=== PATIENT | female | born 1955 | race Caucasian/White ===

== ENCOUNTER 2020-02-27 04:44 | Inpatient (IN) | payer MEDICARE ==
[2020-02-27] VITALS (8 sets, daily range): BP systolic 123–149; BP diastolic 59–96
[~2020-02-27] VITALS: Ht 157.5 cm; Wt 95.3 kg
[2020-02-27] MEDS ORDERED: KETOROLAC TROMETHAMINE 30 MG/ML VIAL ONE (05:39)
--- NOTE | 2020-02-27 05:50 | Emergency Department Note ---
History of Present Illnes History of Present Illness Chief Complaint: Extremity Trauma/Pain History of Present Illness This is a 64 year old female c/o left leg pain radiating to the buttock, hard to walk for 2 weeks, also c/o SOB seen by her PCP Dr Javed Arnett last week. She was prescribed oxygen for SOB and ordered a Doppler but she refused the Doppler. She could not walk and her pain got worse so she came in to ER. Historian: Patient Arrival Mode: Car Dimension Warehouse Supervisor Required: No Onset (how long ago): day(s) Radiation: Reports back, Reports extremity, Reports proximal Onset quality: gradual Duration (how long): week(s) Timing of current episode: constant Progression: worsening Relieving factors: immobilization Exacerbating factors: movement Associated symptoms: Reports loss of appetite, Reports shortness of breath Treatments prior to arrival: none Past Medical/Family History Physician Review I have reviewed the patient's past medical and family history. Any updates have been documented here. Past Medical History Recent Fever: No Clinical Suspicion of Infectio: No New/Unexplained Change in Ment: No Past Medical History: Hypertension, A-Fib, Hypothyroidism, Osteoarthritis Past Surgical History: Bariatric Surgery Other Surgery: neck and back surgeries Social History Smoking Cessation: Never Smoker Counseling Performed: No Alcohol Use: Occasional Any Illegal Drug Use: No Other Any Pre-Existing Lines (PICC,: No Review of Systems Review of Systems EENTM: Reports no symptoms Cardiovascular: Reports no symptoms Respiratory: Reports as per HPI, Reports dyspnea on exertion Gastrointestinal: Reports no symptoms Genitourinary: Reports no symptoms Musculoskeletal: Reports as per HPI Integumentary: Reports no symptoms Neurological: Reports no symptoms Psychological: Reports no symptoms Endocrine: Reports no symptoms Hematological/Lymphatic: Reports no symptoms Physical Exam Related Data Allergies: Coded Allergies: cephalexin (Verified Allergy, Unknown, 02/27/20) Triage Vital Signs Vital Signs Date Time Temp Pulse Resp B/P (MAP) Pulse Ox O2 Delivery O2 Flow Rate FiO2 02/27/20 05:04 97.8 76 18 174/96 98 Room Air Vital signs reviewed: Yes Physical Exam CONSTITUTIONAL Constitutional: Present well-developed, Present well-nourished HENT HENT: Present normocephalic, Present atraumatic, Present oropharynx clear/moist, Present nose normal HENT L/R: Present left ext ear normal, Present right ext ear normal EYES Eyes: Reports PERRL, Reports conjunctivae normal NECK Neck: Present ROM normal PULMONARY Pulmonary: Present effort normal, Present breath sounds normal CARDIOVASCULAR Cardiovascular: Present regular rhythm, Present heart sounds normal, Present capillary refill normal, Present normal rate GASTROINTESTINAL Abdominal: Present soft, Present nontender, Present bowel sounds normal GENITOURINARY Genitourinary: Present exam deferred SKIN Skin: Present warm, Present dry MUSCULOSKELETAL Musculoskeletal: Present ROM normal, Present other (no edema, postive straight leg raise left) NEUROLOGICAL Neurological: Present alert, Present oriented x 3, Present no gross motor or sensory deficits PSYCHOLOGICAL Psychological: Present mood/affect normal, Present judgement normal Results Laboratory Lab results reviewed: Yes Imaging Imaging results reviewed: Yes Procedures 12 Lead ECG Interpretation ECG Interpretation : ECG: ECG 1 Dimension Warehouse Supervisor: Interpreted by ED physician Date: Feb 27, 2020 Time: 05:57 Prior ECG tracings: reviewed Rhythm: atrial fibrillation Rate: bradycardia QRS axis: normal Clinical Impression: abnormal ECG Assessment & Plan Medical Decision Making MDM sciatica, PE, COPD, CHF, DVT Assessment & Plan Final Impression: (1) Dyspnea (2) Afib (3) Anemia (4) Sciatica Depart Disposition: ADMITTED Last Vital Signs Date Time Temp Pulse Resp B/P (MAP) Pulse Ox O2 Delivery O2 Flow Rate FiO2 02/27/20 05:04 97.8 76 18 174/96 98 Room Air Home Meds Reported Medications Apixaban (Eliquis) 5 Mg Tablet, DAILY 02/27/20 Pramipexole Di-Hcl (PRAMIPEXOLE DIHYDROCHLORIDE) 1 Mg Tablet, 1 MG PO BID 02/27/20 Levothyroxine Sodium (LEVOTHYROXINE SODIUM) 100 Mcg Vial, 150 MCG PO QAM, VIAL 02/27/20 Aspirin (ASPIRIN) 81 Mg Tab.chew, DAILY 02/27/20 Lisinopril (LISINOPRIL) 10 Mg Tablet, 20 MG PO DAILY, #30 TAB 02/27/20 Physician Attestation Provider Attestation Case discussed with Dr Miller and PERLA Majano MD Feb 27, 2020 05:50
[2020-02-27] MEDS ORDERED: KETOROLAC TROMETHAMINE 30 MG/ML VIAL IV ONE (06:00)
[2020-02-27] MEDS ORDERED: LEVOTHYROXINE100 MC1 PO (06:10)
[2020-02-27] MEDS ORDERED: PRAMIPEXOLE DIHY1 MG PO (06:10)
[2020-02-27] MEDS ORDERED: ELIQUIS5 MG (06:10)
[2020-02-27] MEDS ORDERED: ASPIRIN81 MG (06:10)
[2020-02-27] MEDS ORDERED: LISINOPRIL10 MG PO (06:10)
--- NOTE | 2020-02-27 06:29 | Diagnostic Imaging Report ---
History: Left lower extremity pain for 2 weeks. Comparison studies: None Technique: Axial images were obtained through the lumbar spine from T12-S1. Coronal and sagittal images reconstructed from the axial data. Dose modulation, iterative reconstruction, and/or weight based adjustment of the mA/kV was utilized to reduce the radiation dose to as low as reasonably achievable. Intravenous contrast: None Findings: The usual 5 non-rib bearing lumbar vertebral bodies are present. Alignment: Normal lordosis. Mild levocurvature of lower lumbar spine may be positional. No subluxation. Soft tissues: Mild atherosclerotic calcification in abdominal aorta and its branches. Paraspinal muscles: Fatty atrophy of posterior paraspinal muscles from level L3-S1. Sacroiliac joints: Minimal bilateral degenerative changes with subchondral sclerosis. Vertebrae: Expected postoperative changes from prior laminectomy from level L3-L5. No fractures, infection or neoplasm. Degenerative changes: L1-L2: No abnormalities. L2-L3: Mild bilateral facet arthrosis. L3-L4: Mild degenerative disc disease. Disc bulge asymmetric to left without canal stenosis. Postoperative changes from prior laminectomy. Moderate right and mild left facet arthrosis. Moderate right and mild left foraminal stenosis. L4-L5: Mild degenerative disc disease. Disc bulge without canal stenosis. Postoperative changes from prior laminectomy. Moderate bilateral facet arthrosis. Moderate bilateral foraminal stenosis. L5-S1: Moderate degenerative disc disease with decreased intervertebral disc space, endplate changes and anterior vertebral osteophyte. Disc bulge with superimposed 1.5 mm central disc protrusion effaces and indents anterior thecal sac without significant canal stenosis. Bilateral severe facet arthrosis. Mild bilateral foraminal stenosis. IMPRESSION: 1. No acute lumbar spine fracture or dislocation. Mild levocurvature of lumbar spine may be positional. 2. Expected postoperative changes from prior laminectomy from level L3-L5. 3. Multilevel lumbar spondylosis without significant canal stenosis. Multilevel foraminal stenosis, particularly moderate right and mild left at L3-L4, moderate bilateral at L4-L5 and mild bilateral at L5-S1. 4. Multilevel degenerative disc disease and facet arthrosis as detailed above. 5. Ligament, spinal cord and or vascular abnormalities cannot be excluded on the basis of this examination. Signed by: Dr. Areli Perez M.D. on 02/27/2020 6:25 AM
[2020-02-27] MEDS ORDERED: DIPHENHYDRAMINE HCL INJ 50 MG/ML VIAL IV PRN (06:30)
[2020-02-27] MEDS ORDERED: ONDANSETRON HCL INJ 2MG/ML 2ML 2 MG/ML VIAL IV PRN (06:30)
[2020-02-27] MEDS ORDERED: ASPIRIN 81 MG CHEW TAB PO ONE (06:30)
[2020-02-27] MEDS ORDERED: SODIUM CHLORIDE FLUSH 10 ML SYR INJ PRN (06:30)
[2020-02-27] MEDS ORDERED: ZOLPIDEM TARTRATE 5 MG TAB PO PRN (06:30)
[2020-02-27] MEDS ORDERED: ACETAMINOPHEN 325 MG TAB PO PRN (06:30)
--- NOTE | 2020-02-27 06:34 | Diagnostic Imaging Report ---
EXAMINATION: CXR 1 VEW - HOPD INDICATION: SOB COMPARISON: None FINDINGS: LUNGS: Normal lung volumes. Lungs are clear. No consolidations. PLEURA: No pleural effusion or pneumothorax. HEART AND MEDIASTINUM: The cardiomediastinal silhouette is unremarkable. BONES AND SOFT TISSUES: No acute osseous lesion. Soft tissues are unremarkable. Cervical fusion hardware. UPPER ABDOMEN: No free air under the diaphragm. IMPRESSION: No acute thoracic radiographic abnormality. Signed by: Javed Oliveros MD on 02/27/2020 6:30 AM
[2020-02-27] MEDS: FAMOTIDINE 20 MG TAB PO SCH ×2 (06:49→17:55)
[2020-02-27] MEDS: MORPHINE SULFATE INJ 4 MG/ML INJ 1ML IV PRN (06:49)
[2020-02-27] MEDS: ONDANSETRON HCL INJ 2MG/ML 2ML 2 MG/ML VIAL IV PRN ×2 (06:49→23:15)
[2020-02-27] MEDS ORDERED: ONDANSETRON HCL INJ 2MG/ML 2ML 2 MG/ML VIAL ONE (06:50)
[2020-02-27] MEDS ORDERED: FAMOTIDINE 20 MG/2 ML VIAL IV ONE (06:50)
[2020-02-27] MEDS ORDERED: MORPHINE SULFATE INJ 4 MG/ML INJ 1ML ONE (06:50)
--- NOTE | 2020-02-27 07:00 | NUR ---
Called [facility] to transport pt to room 107 ETA is 45 minutes
--- NOTE | 2020-02-27 07:44 | NUR ---
Report attempted, RN in room with other pt. try again in about 10 minutes
--- NOTE | 2020-02-27 07:59 | NUR ---
Report to PAULIE Eduardo
[2020-02-27 09:37] LABS: CREATINE KINASE MB 6.7 ng/mL (0-5.0)
[2020-02-27] MEDS ORDERED: HYDRALAZINE HCL 25 MG TAB PO PRN (09:45)
[2020-02-27] MEDS ORDERED: BISACODYL 10 MG SUPP PR PRN (09:45)
[2020-02-27] MEDS ORDERED: MAGNESIUM HYDROXIDE 30 ML UDC PO PRN (09:45)
[2020-02-27] MEDS ORDERED: LEVOTHYROXINE SODIUM 100 MCG/VIAL IV SCH ×2 (09:45→10:15)
[2020-02-27] MEDS ORDERED: KETOROLAC TROMETHAMINE 30 MG/ML VIAL IV PRN (09:45)
[2020-02-27 10:02] LABS: BASOPHILS # (AUTO) 0.1 (0.0-0.1); BASOPHILS % 1.2 % (0.0-1.0); EOSINOPHILS # (AUTO) 0.3 (0.0-0.4); EOSINOPHILS % 3.5 % (0.0-6.0); HEMATOCRIT 30.7 % (34.2-44.1); HEMOGLOBIN 8.7 g/dL (12.0-16.0); LYMPHOCYTES # (AUTO) 1.7 (1.0-3.2); LYMPHOCYTES % 22.9 % (18.0-39.1); MEAN CORPUSCULAR HEMOGLOBIN 21.3 pg (28-32); MEAN CORPUSCULAR HGB CONC 28.3 g/dL (31-35); MEAN CORPUSCULAR VOLUME 75.1 fL (81-99); MONOCYTES # (AUTO) 0.5 (0.2-0.8); MONOCYTES % 7.1 % (4.4-11.3); NEUTROPHILS # (AUTO) 4.7 (2.1-6.9); PLATELET COUNT 232 x10e3/uL (140-360); RED BLOOD COUNT 4.09 x10e6/uL (3.6-5.1); RED CELL DISTRIBUTION WIDTH 16.9 % (11.7-14.4)
[2020-02-27 10:19] LABS: ALANINE AMINOTRANSFERASE 8 IU/L (0-55); ALBUMIN/GLOBULIN RATIO 1.4 (0.8-2.0); ALKALINE PHOSPHATASE 58 IU/L (40-150); BLOOD UREA NITROGEN 17 mg/dL (7-26); BUN/CREATININE RATIO 18 (6-25); CALCIUM 8.7 mg/dL (8.4-10.2); CARBON DIOXIDE 28 mmol/L (22-29); CHLORIDE 102 mmol/L (98-107); CREATININE, SERUM 0.92 mg/dL (0.57-1.11); EST GLOMERULAR FILTRATION RATE > 60 ML/MIN (60-); GLUCOSE 96 mg/dL (74-118); SODIUM 140 mmol/L (136-145)
[2020-02-27] MEDS: HYDROCODONE/APAP 10MG-325MG TAB PO PRN ×2 (10:30→14:31)
[2020-02-27] MEDS: SENNOSIDES 8.6 MG TAB PO SCH ×2 (10:40→17:55)
[2020-02-27] MEDS: GABAPENTIN 100 MG CAP PO SCH ×4 (10:40→17:56)
[2020-02-27] MEDS: APIXABAN 5 MG TABLET PO SCH ×2 (10:40→17:55)
[2020-02-27] MEDS: LISINOPRIL 10 MG TAB PO SCH (10:41)
--- NOTE | 2020-02-27 11:44 | History and Physical ---
PRIMARY CARE PHYSICIAN: Luis Fernando Arnett MD CHIEF COMPLAINT: Left lower extremity radiculopathy associated with unable to walk for the past two weeks, worsening for the past few days. HISTORY OF PRESENT ILLNESS: This is a [id number] with degenerative disk disease with previous lumbar spine laminectomy years ago, came in with left lower extremity radiating pain and shooting pain from the lower back down to the leg area, increased for the past 2 weeks, and much worse recently. Pain was quite severe when she walked that causes shortness of breath. The patient had atrial fibrillation, rate controlled. She is on Eliquis. The venous Doppler of the lower extremities is negative for any blood clot. The patient is stable. The patient stated that her shortness of breath was due to her pain mostly. The patient was given tramadol by Dr. Arnett, but that did not help. She is having pain. She also has history of a nerve stimulator that was subsequently removed, but the lead is still in, therefore she is unable to obtain an MRI of the spine. PAST MEDICAL HISTORY: Degenerative disk disease of the lumbar spine and the neck. Obesity. Hypertension. Hypothyroidism. Atrial fibrillation on anticoagulant therapy. Osteoarthritis. PAST SURGICAL HISTORY: Including hiatal hernia repair. Weight loss surgery. Cholecystectomy, hysterectomy, appendectomy. Lower back lumbar spine laminectomy. Thyroidectomy. Lap banding. Cervical spine fusions. Nerve stimulator that was subsequently removed. SOCIAL HISTORY: The patient does not smoke or use alcohol. No regular drugs. ALLERGIES: KEFLEX. HOME MEDICATIONS: The patient is on Eliquis, aspirin, levothyroxine, lisinopril, and pramipexole. PHYSICAL EXAMINATION: VITAL SIGNS: Temperature is 98, blood pressure 149/96, pulse rate 58, respiration 18. Her height is 5 feet 2 inches, weight is 210 pounds, and BMI 38. GENERAL: The patient is not in acute distress. GENERAL: The patient is not in acute distress. HEENT: Normocephalic and atraumatic. She is anicteric. NECK: Supple. No JVD. Previous surgical scar. PULMONARY: Diminished breath sounds without any wheezing. CARDIOVASCULAR: Irregularly irregular rate control. ABDOMEN: Soft. Morbidly obese. EXTREMITIES: No cyanosis or edema. NEUROLOGIC: Radiculopathy of the left lower extremity. Otherwise, the patient has no other focal deficit. LABORATORY DATA: Was not done. IMAGIN. Lumbar spine. CT scan showed no acute lumbar spine fracture or dislocation. Mild level of curvature of the lumbar spine. Postoperative changes, laminectomy from level of L3-L5. Multi lumbar level spondylosis without canal stenosis. Multilevel foraminal stenosis particularly right and mild left at L3-L4, moderate bilateral L4-L5 and mild bilateral at L5-S1. Multilevel degenerative disk disease. 2. Chest x-ray is otherwise unremarkable. IMPRESSION: 1. Ambulatory dysfunction secondary to lumbosacral spinal pain acute on chronic pain worsening with radiating pain to the left lower extremity. This may be secondary to the nerve involvement. The patient had previous laminectomy as mentioned above. She had a laminectomy from the level of L3-L5. Degenerative disk disease. 2. Multiple chronic baseline problems. The patient is on Eliquis for atrial fibrillation. PLAN: Start the patient on pain control. Start the patient on Toradol and [place]. She had ordered for morphine for increase in pain level. She is also to resume her home medication. Stool management if needed. Consultation with Dr. Yong Hunt for the radiculopathy of the left lower extremity. Consultation with Dr. Yin for pain management. I will go ahead and order the blood work since I did not find any lab results, CMP, and CBC. We will add on a TSH as well. Start the patient on gabapentin 200 mg 3 times a day. MD AIDA Payne/FLAVIO /[id number]
--- NOTE | 2020-02-27 17:20 | Consultation ---
DATE OF CONSULTATION: Cardiology Consultation REASON FOR CONSULTATION: Leg pain and also atrial fibrillation. HISTORY OF PRESENT ILLNESS: Ms. May is a 64-year-old female with a complaint of left lower pain that radiates to her buttocks that has been ongoing for the last few weeks and worsening. She reports for approximately about 3 weeks, she has been suffering from this pain. They also started after an aunt bite and swelling in one portion on her legs and for this reason, she sought services from underlying doctors. She was prescribed antibiotic, however, after the course of antibiotic, the problem persisted. She reports that this pain is like mostly constant and worsens when she is standing on her legs. She does report a history of atrial fibrillation that she has known for approximately over last year and takes Eliquis for. She had a left heart catheterization that was done approximately one year ago that she reports she was told was normal. Currently, she denies any fever, chills, abdominal pain, dysuria, or palpitations. She does endorse some shortness of breath and chest pressure. REVIEW OF SYSTEMS: Negative except as mentioned above. PAST MEDICAL HISTORY: Atrial fibrillation. PAST SURGICAL HISTORY: None. SOCIAL HISTORY: She has one child and a boyfriend, endorses occasional taking alcohol. PHYSICAL EXAMINATION: VITAL SIGNS: Temperature 98.2, pulse 65, respiratory rate 16, blood pressure 156/80, oxygen saturation 97% on room air. GENERAL: Alert and oriented x3, resting comfortably in bed, does not appear to be in any acute distress at this moment. NECK: Supple. No JVD noted. CARDIOVASCULAR: Regular rate and rhythm. Normal S1, S2. No murmurs, no gallops. LUNGS: Clear to auscultation throughout, no wheezing, no rhonchi or crackles. ABDOMEN: Soft and nontender. LOWER EXTREMITIES: 2+ pedal pulses. Slight edema to the left lower extremity. CARDIOVASCULAR MEDICATIONS: 1. Lisinopril 20 mg p.o. daily. 2. Gabapentin 200 mg p.o. b.i.d. 3. Eliquis 5 mg p.o. b.i.d. 4. Hydralazine 25 mg p.o. q.4 hours. LABORATORY DATA: WBC 7.22, hemoglobin 8.7, hematocrit 30.7, platelets 232. Sodium 140, potassium 4.0, BUN 17, creatinine 0.92, GFR greater than 60, CK-MB 6.70, troponin 0.23, creatine kinase 329. TSH 57. Chest x-ray on admission with no acute thoracic radiographic abnormalities noted. CT of lumbar with no acute spine fracture or dislocation. Multilevel lumbar spondylosis with multilevel foraminal stenosis, multilevel degenerative disk disease. IMPRESSION: 1. Hypothyroidism. 2. Chest pain. 3. Left lower pain. 4. Hypertension. 5. Atrial fibrillation. RECOMMENDATIONS: Echocardiogram and left lower extremity Doppler have been ordered. In regard to leg pain, continue medical therapy management of the above. Given risk factor and complaints of chest pain, plan for stress test tomorrow. Further recommendations will follow. We will continue to follow this patient very closely. We thank you for this consultation and allowing us to participate in this patient's care. Dictated by Lisa Munguia NP MD KATE Ornelas/FLAVIO /[id number]
[2020-02-27] MEDS: PRAMIPEXOLE DIHYDROCHLORIDE 1 MG TAB PO SCH (17:55)
--- NOTE | 2020-02-27 20:00 | NUR ---
RECEIVED PT EATING IN THE ROOM ,.DENIES PAIN AT THIS TIME .PT IS NPO AFTER MID NIGHT FOR STRESS TEST ,CALL LIGHT WITH IN REACH .CONTINUE TO MONITOR
[2020-02-28] VITALS (7 sets, daily range): BP systolic 125–146; BP diastolic 60–85
[2020-02-28 00:03] LABS: CREATINE KINASE MB 3.7 ng/mL (0-5.0)
[2020-02-28] MEDS: ONDANSETRON HCL INJ 2MG/ML 2ML 2 MG/ML VIAL IV PRN ×2 (01:00→07:19)
--- NOTE | 2020-02-28 05:29 | NUR ---
PT C/O NAUSEA AND GIVEN ZOFRAN ,PT IS NPO FOR STRES TEST ,CALL LIGHT WITH IN REACH ,CONTINUE TO MONITOR
[2020-02-28] MEDS: LEVOTHYROXINE SODIUM 100 MCG TAB PO SCH (06:00)
[2020-02-28] MEDS: FAMOTIDINE 20 MG TAB PO SCH ×2 (06:23→18:10)
--- NOTE | 2020-02-28 07:12 | NUR ---
BEDSIDE REPORT GIVEN TO THE ONCOMING NURSE
[2020-02-28] MEDS: MORPHINE SULFATE INJ 4 MG/ML INJ 1ML IV PRN (07:19)
[2020-02-28 07:25] LABS: CHOL/HDL RATIO 3.9 (3.0-3.6)
[2020-02-28] MEDS ORDERED: REGADENOSON 0.4 MG/5 ML SYR IV ONE (08:15)
[2020-02-28] MEDS ORDERED: SODIUM CHLORIDE 0.9% 250ML 250 ML ONE (08:56)
[2020-02-28] MEDS: PROMETHAZINE 12.5MG/ NACL 0.9% 12.5 MG/50 ML BAG IV PRN ×2 (08:58→16:18)
[2020-02-28] MEDS: LISINOPRIL 10 MG TAB PO SCH (09:00)
[2020-02-28] MEDS: SENNOSIDES 8.6 MG TAB PO SCH ×2 (09:00→18:10)
[2020-02-28] MEDS: GABAPENTIN 100 MG CAP PO SCH ×3 (09:00→20:49)
[2020-02-28] MEDS: PRAMIPEXOLE DIHYDROCHLORIDE 1 MG TAB PO SCH ×2 (09:00→18:10)
[2020-02-28] MEDS ORDERED: LEVOTHYROXINE SODIUM 100 MCG/VIAL IV SCH (09:00)
[2020-02-28] MEDS: APIXABAN 5 MG TABLET PO SCH ×2 (09:00→18:10)
[2020-02-28 09:11] LABS: % IRON SATURATION 6 % (15-50); IRON 31 ug/dL (50-170); TOTAL IRON BINDING CAPACITY 503 ug/dL (261-478); TRANSFERRIN 359 mg/dL (180-382)
[2020-02-28] MEDS ORDERED: HYDROCODONE/APAP 10MG-325MG TAB PO PRN (12:30)
[2020-02-28] MEDS ORDERED: FENTANYL 25 MCG/HR PATCH TOP SCH (12:30)
--- NOTE | 2020-02-28 12:57 | NUR ---
PT HEAR RATE IN 40'S. SPOKE WITH Agari WHO STATES DR FULLER WANTS STRESS TEST CANCELLED. WILL SPEAK WITH MD TO CLARIFY.
[2020-02-28] MEDS: HYDROMORPHONE 2MG/ML 2 MG/ML ML IV PRN (16:24)
--- NOTE | 2020-02-28 22:50 | Consultation ---
DATE OF CONSULTATION: 02/28/2020 GI Consult Note CONSULTING PHYSICIAN: Javed Miller MD REASON FOR CONSULT: Iron Def. Anemia. HISTORY OF PRESENTING ILLNESS: A 64-year-old female, who got admitted in the hospital due to some swelling in the left leg, for which she has had duplex (Doppler) of the extremities today. She also has a history of some ant bite on the left leg, for which she was treated with antibiotic. Despite treatment with antibiotic, the patient's left leg pain and swelling did not go away. The result of the Doppler is still pending. She also has a history of atrial fibrillation, on apixaban. Routine blood work revealed anemia with a hemoglobin of 8.7, hematocrit 30.7, and MCV 75.1. Iron profile showed serum iron 31, TIBC 503 (it is elevated). GI is being consulted to rule out GI source of blood loss causing iron deficiency anemia. The patient is not sure if she ever had any upper endoscopy or colonoscopy. Denies seeing any blood in the stool, no history of any melena. No chronic use of any NSAIDs. No prior history of any peptic ulcer disease. REVIEW OF SYSTEMS: Twelve point system reviewed. Symptomatology is limited as per HPI. PAST MEDICAL HISTORY: Atrial fibrillation, hypothyroidism, and hypertension. PAST SURGICAL HISTORY: None. SOCIAL HISTORY: No smoking or any illicit drug use. Drinks alcohol socially. ALLERGIES: CEPHALEXIN. HOME MEDICATIONS: Apixaban, aspirin, levothyroxine, lisinopril, and pramipexole. INPATIENT MEDICATIONS: List reviewed as per AUG. PHYSICAL EXAMINATION: VITAL SIGNS: Temperature 97.5, pulse 51, respirations 20, blood pressure 128/80, oxygen saturation 99% on 2 L of nasal cannula. GENERAL: Not in any apparent distress. Lethargic and drowsy. HEENT: Oral mucosa is moist. Anicteric sclerae. CVS: S1 and S2. Irregularly irregular with a 2/6 flow murmur at the apex. LUNGS: Bilaterally grossly clear, the patient has a very poor inspiratory effort. ABDOMEN: Soft, nondistended, and nontender. No palpable mass or hernia. Positive bowel sounds. EXTREMITIES: Lower extremity, 1+ bilateral pitting leg edema. No localized tenderness in the left leg, no tenderness in the left calf muscle. LABORATORY DATA: Lab drawn yesterday showed sodium 140, potassium 4.0, chloride 102, bicarb 28, BUN 17 and creatinine 0.92, serum iron 31, TIBC 503, iron saturation 6%, transferrin 359. Liver enzymes normal. WBC 7.22, hemoglobin 8.7, hematocrit 30.7, MCV 75.1, and platelet count 232. Lower extremity duplex Doppler study result pending. Chest x-ray, no acute cardiothoracic abnormality. IMPRESSION: Microcytic iron deficiency anemia. PLAN: Check stool for occult blood, ferritin level. Continue apixaban for now. The patient is scheduled to undergo stress test as she also complained about chest pain, therefore, the patient is being seen by Cardiology Service. If her stool guaiac is positive for occult blood, then the patient will need upper endoscopy as well as colonoscopy. For this procedure, the patient does not need to stay in the hospital. This can electively be done as an outpatient as well. I thank, Dr. Miller, for allowing me to participate in the care of this patient. David Eric MD SA/FLAVIO /[id number] HOME
[2020-02-29] VITALS (8 sets, daily range): BP systolic 130–156; BP diastolic 63–79
[2020-02-29] MEDS: HYDROMORPHONE 2MG/ML 2 MG/ML ML IV PRN ×3 (01:55→22:10)
--- NOTE | 2020-02-29 02:59 | NUR ---
new IV started, pain med given. pt now resting in bed, no distress. bed alarm on. call light within reach. pt aware of NPO for stress test.
[2020-02-29] MEDS: FAMOTIDINE 20 MG TAB PO SCH ×2 (04:37→17:56)
[2020-02-29] MEDS: LEVOTHYROXINE SODIUM 100 MCG TAB PO SCH (04:37)
[2020-02-29] MEDS: PROMETHAZINE 12.5MG/ NACL 0.9% 12.5 MG/50 ML BAG IV PRN ×2 (04:59→22:10)
--- NOTE | 2020-02-29 06:32 | NUR ---
Pt had hebiclin bath done. pt in bed resting. no distress. call light within reach.
--- NOTE | 2020-02-29 07:01 | NUR ---
bedside shift report received from PM nurse. pt in stable condition.
[2020-02-29] MEDS: GABAPENTIN 100 MG CAP PO SCH ×3 (09:00→21:41)
[2020-02-29] MEDS: SENNOSIDES 8.6 MG TAB PO SCH ×2 (09:00→17:57)
[2020-02-29] MEDS: PRAMIPEXOLE DIHYDROCHLORIDE 1 MG TAB PO SCH ×2 (09:00→17:58)
[2020-02-29] MEDS: LISINOPRIL 10 MG TAB PO SCH (09:00)
[2020-02-29] MEDS ORDERED: MAGNESIUM HYDROXIDE 30 ML UDC PO PRN (09:00)
[2020-02-29] MEDS: APIXABAN 5 MG TABLET PO SCH ×2 (09:00→17:58)
[2020-02-29] MEDS ORDERED: BISACODYL 5 MG TAB EC PO PRN (09:00)
--- NOTE | 2020-02-29 10:10 | NUR ---
Pt stated she wanted to "go home" and declined visit at this time. Provided information on how to request glass toughening operator visit if she changed her mind. MARY ISRAEL [facility] O: [phone]
[2020-02-29] MEDS ORDERED: LORAZEPAM INJ 2 MG/ML VIAL IV ONE (11:30)
--- NOTE | 2020-02-29 13:22 | NUR ---
Discontinuing PT services since patient is Mod i in functional mobility. Thank you. Addendum: 02/29/20 at 1328 by Lenard connelly PT Amended: Links added.
--- NOTE | 2020-02-29 15:56 | NUR ---
had discussion with patient at bedside. pt states she does not want her boyfriend, Stephen Hernandez, given any medical information about her. reassured pt of her privacy and documentation made to pt's chart. will also make oncoming RN aware.
[2020-02-29] MEDS: LIDOCAINE 4% PATCH TP SCH (18:05)
[2020-02-29 19:02] LABS: BASOPHILS # (AUTO) 0.1 (0.0-0.1); BASOPHILS % 0.6 % (0.0-1.0); EOSINOPHILS # (AUTO) 0.2 (0.0-0.4); EOSINOPHILS % 1.7 % (0.0-6.0); HEMATOCRIT 34.1 % (34.2-44.1); HEMOGLOBIN 9.6 g/dL (12.0-16.0); LYMPHOCYTES # (AUTO) 1.4 (1.0-3.2); LYMPHOCYTES % 14.5 % (18.0-39.1); MEAN CORPUSCULAR HEMOGLOBIN 20.7 pg (28-32); MEAN CORPUSCULAR HGB CONC 28.2 g/dL (31-35); MEAN CORPUSCULAR VOLUME 73.7 fL (81-99); MONOCYTES # (AUTO) 0.5 (0.2-0.8); NEUTROPHILS # (AUTO) 7.4 (2.1-6.9); NEUTROPHILS % 77.8 % (38.7-80.0); PLATELET COUNT 273 x10e3/uL (140-360); RED BLOOD COUNT 4.63 x10e6/uL (3.6-5.1)
--- NOTE | 2020-02-29 19:10 | NUR ---
Bedside rounds completed with morning nurse. Pt alert and oriented to name, lying in bed HOB 45 degrees talking on phone. Denies pain at this time. Call light within reach. Bed low and locked.
[2020-02-29 19:19] LABS: ANION GAP 15.2 mmol/L (8-16); CALCIUM 8.3 mg/dL (8.4-10.2); CREATININE, SERUM 1.06 mg/dL (0.57-1.11); POTASSIUM 4.2 mmol/L (3.5-5.1)
--- NOTE | 2020-02-29 20:02 | Consultation ---
DATE OF CONSULTATION: 02/29/2020 REASON FOR CONSULTATION: Left leg pain. HISTORY OF PRESENT ILLNESS: The patient is a 64-year-old woman, who has previously undergone anterior cervical diskectomy and fusion by me in 2001 with good results. In 2009, she underwent L3, L4, L5 bilateral decompressive laminectomy by another surgeon. She has had chronic low back pain since then. She now presents with a 3-week history of unrelenting severe acute pain radiating down the left leg as far as the calf. The pain is exacerbated by sitting and standing, and she got to the point where she could no longer ambulate effectively and came to the hospital. She denies any significant pain in the right leg. PHYSICAL EXAMINATION: On examination, the patient is comfortable lying supine, but developed significant pain with standing. Straight leg raising is positive on the left at 30 degrees and negative on the right. Motor strength is mildly diminished in the left quadriceps. Sensation to light touch and pinprick is diminished over the anterior aspect of the left vega and knee. Deep tendon reflexes are absent in the patella and Achilles tendons. Plantar responses are flexor. She has a great deal of difficulty standing and ambulating. IMAGING DATA: CT of the lumbar spine was reviewed and is uninformative. There is evidence of previous laminectomies at L3-4 and L4-5. RECOMMENDATIONS: We will proceed with an MRI of the lumbar spine. The patient will require sedation because of claustrophobia. I will reassess her after the MRI. Yong Hunt MD PP/WOLFGANGL /[id number]
[2020-03-01] VITALS: BP 146/61
--- NOTE | 2020-03-01 00:01 | Progress Note ---
DATE: 02/29/2020 GI Progress Report SUBJECTIVE: The patient reports no bowel movement today. Denies any abdominal pain. She has a constipation at baseline. Today she was telling me that she likely has had upper endoscopy as well as colonoscopy by Dr. Navarro five years ago. The patient does not remember the finding. REVIEW OF SYSTEMS: GENERAL: Weakness and lethargy. CVS: No chest pain or palpitation. RESPIRATORY: No cough or expectoration. MEDICATIONS: Reviewed as per AUG. PHYSICAL EXAMINATION: VITAL SIGNS: Temperature 98.2, pulse 88, respirations 16, blood pressure 134/68, oxygen saturation 100% on room air. GENERAL: Not in any acute distress. HEENT: Oral mucosa is moist. Anicteric sclerae. ABDOMEN: Soft, nondistended, nontender. No palpable mass or hernia. Bowel sounds present. LABORATORY DATA: Ferritin 8.84, hemoglobin 9.6, hematocrit 34.1, MCV 73.7, WBC 9.51, and platelet count 273,000. Sodium 139, potassium 4.2, chloride 100, bicarb 28, BUN 17, creatinine 1.06. IN SUMMARY: Iron deficiency anemia, cause unclear. PLAN: Check stool guaiac. We will try to check stool guaiac. Stress test was negative. Bowel regimen for constipation. I have given the patient my business card. She is to follow my office within one week upon discharge. She will need bidirectional endoscopy for evaluation of anemia, which can be done electively as an outpatient. David Eric MD SA/FLAVIO /[id number]
[2020-03-01 04:00] VITALS: BP 131/84
[2020-03-01] MEDS: LEVOTHYROXINE SODIUM 100 MCG TAB PO SCH (05:51)
[2020-03-01] MEDS: FAMOTIDINE 20 MG TAB PO SCH (05:51)
[2020-03-01] MEDS: HYDROMORPHONE 2MG/ML 2 MG/ML ML IV PRN (06:25)
[2020-03-01 07:33] VITALS: BP 136/56
[2020-03-01] MEDS ORDERED: KETOROLAC TROMETHAMINE 30 MG/ML VIAL IV PRN (08:30)
[2020-03-01] MEDS ORDERED: ACETAMINOPHEN 325 MG TAB PO SCH (08:45)
[2020-03-01] MEDS: APIXABAN 5 MG TABLET PO SCH (08:52)
[2020-03-01] MEDS: LISINOPRIL 10 MG TAB PO SCH (08:53)
[2020-03-01] MEDS: PRAMIPEXOLE DIHYDROCHLORIDE 1 MG TAB PO SCH (08:53)
[2020-03-01] MEDS: GABAPENTIN 100 MG CAP PO SCH (08:53)
[2020-03-01] MEDS: LIDOCAINE 4% PATCH TP SCH (08:53)
[2020-03-01] MEDS: SENNOSIDES 8.6 MG TAB PO SCH (08:53)
[2020-03-01 09:00] VITALS: BP 136/56
[2020-03-01] MEDS ORDERED: CYANOCOBALAMIN 1,000 MCG TAB PO SCH (09:00)
[2020-03-01] MEDS ORDERED: POLYETHYLENE GLYCOL 3350 17 GM PACK PO SCH (09:00)
[2020-03-01] MEDS ORDERED: IRON SUCROSE 100 MG in SODIUM CHLORIDE 0.9% 100 ML 100 ML IV SCH ×2 (10:00→13:00)
[2020-03-01] MEDS ORDERED: BISACODYL 10 MG SUPP PR ONE (10:15)
[2020-03-01 12:30] VITALS: BP 127/58
[2020-03-01] MEDS ORDERED: ONDANSETRON HCL 4 MG ORAL DISINTEGRATING TAB PO PRN (13:30)
--- NOTE | 2020-03-01 14:18 | Progress Note ---
DATE: 03/01/2020 Cardiology Progress Note SUBJECTIVE: Had her stress test finally completed yesterday. No chest pain or shortness of breath. Complains about back pain. OBJECTIVE: VITAL SIGNS: Temperature afebrile, pulse 58, respiratory rate 16, blood pressure 127/58, and saturating 99% on room air. GENERAL: Middle-aged female, in no acute distress. CARDIOVASCULAR: Regular rate and rhythm. No murmurs, rubs, or gallops. LUNGS: Clear to auscultation anteriorly. ABDOMEN: Soft, nontender, nondistended. NEUROLOGIC AND PSYCH: Alert and oriented to person, place, and time. Normal affect. INPATIENT MEDICATIONS: Reviewed. LABORATORY DATA: Reviewed. TELEMETRY DATA: Reviewed, shows normal sinus rhythm. ASSESSMENT: 1. Atrial fibrillation. 2. Hypothyroidism. 3. Chronic abdominal pain. 4. Lower extremity edema. 5. [id number] systolic congestive heart failure exacerbation. PLAN: Continue current cardiovascular medications. Stress test was of poor quality as the patient was moving around during imaging, so ejection fraction was inaccurate. Generally, the perfusion prior to this study appears to be normal. I do not suspect CAD at this time. Continue optimal medical therapy for her CHF and atrial fibrillation with apixaban, lisinopril; currently not on a beta hal due to the bradycardia. Treatment for chronic pain issues per primary team. Thank you for this consult. We will continue to follow. MD SREEKANTH Oshea/WOLFGANGL /[id number]
--- NOTE | 2020-03-01 14:20 | NUR ---
patient discharged. IV removed. telemetry removed. patient has appointment with Dr. Yin this afternoon. prescriptions given and patient clear on follow up appts needed. patient wheeled off unit in stable condition.
--- NOTE | 2020-03-02 03:01 | Discharge Summary ---
CONSULTANTS: 1. Dr. Yong Hunt. 2. Dr. Yin, Pain Management. 3. Dr. Gerry Ryder. 4. Dr. Truong Barajas. FINAL DIAGNOSES: 1. Degenerative disk disease of the lumbar spine associated with radiculopathy. The patient refused MRI because she believed that her previous stimulator lead remained after the stimulator removed, is a contradict indication for MRI. 2. Intractable lower back pain, improved with pain control. 3. Ambulatory problem, much improved with pain control and medication adjustment. 4. Chest pain, status post nuclear stress test that was negative. 5. Chronic anemia, most likely iron deficiency. 6. History of gastric banding and reflux. 7. Shortness of breath secondary to multifactorial including anemia and uncontrolled pain prior to admission. SUMMARY: The patient is a 64-year-old female with chronic lower back pain, much worse due to degenerative disk disease with pain. The patient was having difficulty with pain control and then subsequently radiating pain down to her left lower extremity. CT scan of the spine showed that the patient has significant degenerative disk disease with possible impinging on the nerve. The patient failed outpatient pain management. The patient subsequently came to the hospital because of increasing chest pain, shortness of breath with exertion and subsequently admitted to the hospital for further workup. In the hospital, the patient had multiple tests done including nuclear stress test that was subsequently negative. She is also found to have significant anemia. Hemoglobin and hematocrit of 9.6 and 34.1. The patient did receive iron infusion. She had a lumbar spine CT scans done, which showed no acute lumbar spine fracture or dislocation. She does have multilevel lumbar spondylosis without significant canal stenosis. There is multilevel foraminal stenosis particularly moderate right and mild left at L3-L4, moderate bilateral at L4-L5 and mild bilateral at L5-S1. There is also a multilevel degenerative disk disease and facet arthrosis. This ligament spinal cord or vascular abnormality was not able to exclude. Therefore, an MRI of the lumbar spine was ordered, but the patient previously had a pain stimulator that was subsequently removed, but the lead was remain, therefore the patient strongly believed that is an indication for contraindication of the MRI. Dr. Hunt wanted an MRI, but the patient absolutely refused. Therefore, there was no surgical evaluation for any management with respect to surgery. The patient, however, was placed on multiple medications. She was placed on gabapentin 200 mg and subsequently increased to 300 mg 3 times a day. She was on ketorolac 15 mg q.6 p.r.n. for pain. She has responded well. Her blood pressure was also elevated, therefore adjustment of her lisinopril to 20 mg daily. She is also on stool softener as well. Her Eliquis, she was taking 5 mg once a day. We will adjust it to twice a day. The patient has baseline atrial fibrillation, rate controlled. The patient underwent nuclear stress test that was otherwise unremarkable. The perfusion of the stress test appeared to be normal. The patient also had an echocardiogram that was done, showed her ejection fraction is between 40% to 45%. She did receive one dose of iron infusion. Dr. Yin consulted for pain management. Dr. Yin set up the patient to have pain medication as an outpatient. She also was given Lidoderm patch once a day to the low back area and that helped. The patient is stable and discharged home. Home medications adjusted. Eliquis 5 mg twice a day, gabapentin 300 mg 3 times a day, lisinopril 20 mg daily, and stool softener. Other pain medications including [place] 10 mg, the patient needs to follow up with Dr. Yin to get the prescription. She will resume her other medications including levothyroxine. She is also on furosemide, she will resume. Give her Pepcid 20 mg twice a day. The patient is otherwise stable and discharged home. Follow up with family physician, Dr. Luis Fernando Arnett. Get a referral to see specialist, Dr. Yin for pain management. I also advised the patient to follow up with Dr. Eric for anemia workup as an outpatient. In the meantime, the patient did receive iron infusion. The patient is stable and discharged home today. Her hemoglobin went up from 8.7 to 9.6, which is stable. Of note, coronavirus PCR was not detected. Vital signs were stable. The patient was discharged home. Follow up as an outpatient as instructed. MD AIDA Payne/FLAVIO /[id number]
[2020-03-02] MEDS ORDERED: FUROSEMIDE 20 MG TAB PO SCH (09:00)
== END 2020-03-01 14:45 | disposition home or self-care (01) | DRG 551 ==
LOC: FSED 05:00 → ERHOLD 06:23 → MED/SURG 08:23 → OBSVTOIN 02-28 09:14
PROVIDERS: ADMIT Internal Medicine; ATTEND Internal Medicine
DX: M51.16 Intervertebral disc disorders with radiculopathy, lumbar region (principal); I50.23 Acute on chronic systolic (congestive) heart failure; Z11.59 Encounter for screening for other viral diseases; D50.9 Iron deficiency anemia, unspecified; Z98.84 Bariatric surgery status; Z74.09 Other reduced mobility; M54.9 Dorsalgia, unspecified; M48.061 Spinal stenosis, lumbar region without neurogenic claudication; M48.07 Spinal stenosis, lumbosacral region; Z98.1 Arthrodesis status; E03.9 Hypothyroidism, unspecified; I48.91 Unspecified atrial fibrillation; Z79.01 Long term (current) use of anticoagulants; M51.17 Intervertebral disc disorders with radiculopathy, lumbosacral region; I11.0 Hypertensive heart disease with heart failure
CPT/HCPCS: 36415; 71045; 72131; 78452; 80048; 80053; 80061; 81003; 82550; 82553; 82607; 82728; 82746; 83540; 83880; 84443; 84466; 84484; 85025; 85379; 93005; 93017; 93306; 93971; 96360; 99284; A9502; G0378; J1756; J1885; J2270; J2405; J2550; J7050; U0002